=== PATIENT | male | born 1965 | race Caucasian/White ===

== ENCOUNTER 2022-03-23 09:40 | Emergency (ER) | payer BC, SELFPAY ==
--- NOTE | ~2022-03-23 | XR_ITS ---
EXAMINATION: XR CHEST CLINICAL INFORMATION: Fever COMPARISON: None TECHNIQUE: 2 views of the chest were obtained. FINDINGS: The lungs are well expanded. Airspace opacity seen at the medial right base, projecting at the right middle lobe on the lateral view. The left lung is clear. No pleural effusion or pneumothorax. The cardiomediastinal silhouette is within normal limits. XR/XR chest 2V IMPRESSION: Right middle lobe airspace opacity is suspicious for pneumonia. Follow-up to resolution.
[2022-03-23 09:44] VITALS: BP 134/73; PULSE 101; RESP 19; TEMP 37.3; O2SAT 98; BMI 25.9
--- NOTE | 2022-03-23 10:07 | ED.FEVER ---
HPI - Fever General Chief Complaint: Fever Stated Complaint: hot flashes, numbness in side, headache Time Seen by Provider: 03/23/22 10:05 Source: patient Mode of arrival: ambulatory Limitations: no limitations History of Present Illness HPI Narrative: 56-year-old male with no significant medical history presents to the ER for evaluation of 2-3 days of ?not feeling well and being sick. ? He states 2 days ago he started having subjective fevers, chills, headaches. He went to a urgent care clinic where he had a negative COVID swab. He reports also having a urine test done that shows some blood in his urine, which she has had his whole life. It did not show infection. He reports the last 2 days his symptoms have gotten worse. He has some intermittent nasal congestion and sinus pressure. He has a frontal headache. He reports at night he is getting sweating subjective fevers but has not taken his temperature. He reports a numbness when he urinates but no pain, frequency or urgency. No visible blood in his urine. He denies any nausea, vomiting, diarrhea, abdominal pain, shortness of breath, cough, chest pain. He reports decreased p.o. intake. MD elicited complaint: fever, malaise and other (headaches) Onset (ago): day(s) (3) Exacerbating factors: at night Relieving factors: nothing Associated symptoms: chills, myalgias, nasal congestion, night sweats and sinus pain Treatments prior to arrival fever: none Related Data Previous Rx's Medication Instructions Recorded azithromycin 250 mg tablet See Rx Instructions PO .COMPLEX #6 03/23/22 (Zithromax Z-Adi) tabs cefpodoxime 200 mg tablet 200 mg PO BID #14 tabs 03/23/22 prednisone 20 mg tablet 40 mg PO DAILY #10 tabs 03/23/22 Allergies Allergy/AdvReac Type Severity Reaction Status Date / Time No Known Allergies Allergy Verified 03/23/22 10:04 Review of Systems Review of Systems: Constitutional: + Fever, + Chills ENT/Mouth: No sore throat, No Rhinorrhea, No Swallowing Difficulty, +Nasal congestion, +Sinus pain Eyes: No Eye Pain, No Swelling, No Redness Cardiovascular: No Chest Pain, No SOB, No Orthopnea, No Edema Respiratory: No Cough, No Sputum, No Wheezing, No dyspnea Gastrointestinal: No Nausea, No Vomiting, No Diarrhea, No abdominal Pain, No Hematochezia, No Melena Genitourinary: No Dysuria, No Urinary Frequency, No Hematuria Musculoskeletal: + joint pain, + Myalgias Skin: No Skin Lesions, No rash Neuro: + Weakness, No Numbness, No Dizziness, + Headache Psych: No Anxiety/Panic, No Depression Heme/Lymph: No Bruising, No Lymphadenopathy Endocrine: No Polyuria, No Polydipsia PMFSH Social History Social History Advance Directives: No Advance Directives Information Provided: No Physical Exam Vital Signs: Vital Signs: Last Vital Signs Temp 99.1 F 03/23/22 09:44 Pulse 101 H 03/23/22 09:44 Resp 19 03/23/22 09:44 BP 134/73 03/23/22 09:44 Pulse Ox 98 03/23/22 09:44 O2 Del Method 03/23/22 09:44 BMI result Body Mass Index 25.9 Appearance: Alert. Oriented X3. No acute distress. Eyes: Pupils equal, round and reactive to light. ENT: Pharynx normal. Normal tympanic membranes bilaterally. Clear nasal discharge. Neck: Normal inspection. Neck supple. No lymphadenopathy CVS: Normal heart rate and rhythm. Pulses normal. Respiratory: No respiratory distress. Breath sounds normal. Abdomen: Soft and nontender. +BS x4 Skin: Skin warm and dry. Normal skin color. Normal skin turgor. No rashes. Extremities: No lower extremity edema. Neuro: Oriented X 3. No motor deficit. No sensory deficit. Course Course Course Narrative: 56-year-old male presents to the ER for evaluation of 2 days of subjective fevers, chills, headaches and generally not feeling well. Recently had negative COVID test. His vital signs today reveal low-grade fever 99.1 and heart rate 101. He is in no distress in his physical exam is unremarkable. Will get chest x-ray, repeat COVID swab, urinalysis, and basic labs. Reevaluation(s) Reevaluation #1: Basic lab workup showing WBC 12.6. Mild normocytic anemia. Complete metabolic panel is unremarkable. His urinalysis is showing blood which he reports is his baseline. He states he has had a his whole life. He has no evidence of infection. Chest x-ray showing evidence of right middle lobe pneumonia. He is saturating 90% on room air. He has minimal respiratory symptoms but has more systemic symptoms of feeling of unwell. He has no underlying lung pathology. His lungs are clear. Will plan to start him on dual coverage with azithromycin and cefpodoxime. Work note provided per request. Return precautions were discussed. Stable for discharge home. MDM - Fever Lab Data Result diagrams: 03/23/22 10:26 03/23/22 10:26 Labs: Lab Results 03/23/22 03/23/22 03/23/22 Range/Units 10:26 10:26 10:26 WBC 12.6 H (4.8-10.8) X10*3/uL RBC 4.24 L (4.60-5.80) X10*6/uL Hgb 13.1 L (14.0-18.0) g/dl Hct 36.7 L (42.0-52.0) % MCV 86.6 (80.0-98.0) fL MCH 30.9 (27.0-33.0) pg MCHC 35.7 (31.0-36.0) g/dl RDW 11.9 (11.0-16.0) % Plt Count 177 (160-400) X10*3/uL MPV 9.4 (9.4-12.4) fL Immature Gran % (Auto) 0.6 H (0.0-0.4) % Neut % (Auto) 82.5 H (45-73) % Lymph % (Auto) 8.9 L (20-40) % [place] % (Auto) 7.1 (2-11) % Eos % (Auto) 0.7 (0-4) % Baso % (Auto) 0.2 (0-2) % Lymph # (Auto) 1.1 L (1.2-4.9) X10*3/uL [place] # (Auto) 0.9 (0.1-1.2) X10*3/uL Eos # (Auto) 0.1 (0.0-0.4) X10*3/uL Baso # (Auto) 0.0 (0.0-0.2) X10*3/uL Abs Immat Gran (auto) 0.08 H (0.00-0.03) X10*3/uL Absolute Neuts (auto) 10.4 H (2.0-8.3) x10*3/uL Absolute Nucleated RBC 0.000 (0.0-0.012) X10*3/uL Nucleated RBC % (auto) 0.0 (0.0-0.2) /100WBC Sodium 137 (135-145) mmol/L Potassium 3.9 (3.3-5.1) mmol/L Chloride 99 (96-108) mmol/L Carbon Dioxide 26 (22-29) mmol/L Anion Gap 16 (12-20) BUN 13 (9-16) mg/dL Creatinine 1.24 (0.5-1.4) mg/dL Estim Creat Clear Calc 68.1 Estimated GFR > 60 Random Glucose 115 (60-115) mg/dL Calcium 9.0 (8.4-10.2) mg/dL Magnesium 2.0 (1.6-2.6) mg/dL Total Bilirubin 0.8 (0.0-1.0) mg/dL Direct Bilirubin 0.3 (0.0-0.5) mg/dL AST 15 (5-37) U/L ALT 22 (0-40) U/L Alkaline Phosphatase 72 (39-117) U/L Total Protein 7.6 (6.5-8.0) g/dL Albumin 4.4 (3.5-5.0) g/dL Urine Color Urine Appearance Urine pH (5.0-9.0) Ur Specific [place] (1.005-1.025) Urine Protein (Neg-Trace) mg/dL Urine Glucose (UA) (Negative) mg/dL Urine Ketones (Negative) mg/dL Urine Blood (Negative) Urine Nitrite (Negative) Ur Leukocyte Esterase (Negative) Urine RBC (0-2) /HPF Urine WBC (0-5) /HPF Ur Squamous Epith Cells (0-2) /HPF Urine Bacteria (None Seen) Hyaline Casts (0-2) /LPF COVID-19 (JEANINE) Negative (Negative) COVID-19 Clin Com See Note 03/23/22 Range/Units 10:26 WBC (4.8-10.8) X10*3/uL RBC (4.60-5.80) X10*6/uL Hgb (14.0-18.0) g/dl Hct (42.0-52.0) % MCV (80.0-98.0) fL MCH (27.0-33.0) pg MCHC (31.0-36.0) g/dl RDW (11.0-16.0) % Plt Count (160-400) X10*3/uL MPV (9.4-12.4) fL Immature Gran % (Auto) (0.0-0.4) % Neut % (Auto) (45-73) % Lymph % (Auto) (20-40) % [place] % (Auto) (2-11) % Eos % (Auto) (0-4) % Baso % (Auto) (0-2) % Lymph # (Auto) (1.2-4.9) X10*3/uL [place] # (Auto) (0.1-1.2) X10*3/uL Eos # (Auto) (0.0-0.4) X10*3/uL Baso # (Auto) (0.0-0.2) X10*3/uL Abs Immat Gran (auto) (0.00-0.03) X10*3/uL Absolute Neuts (auto) (2.0-8.3) x10*3/uL Absolute Nucleated RBC (0.0-0.012) X10*3/uL Nucleated RBC % (auto) (0.0-0.2) /100WBC Sodium (135-145) mmol/L Potassium (3.3-5.1) mmol/L Chloride (96-108) mmol/L Carbon Dioxide (22-29) mmol/L Anion Gap (12-20) BUN (9-16) mg/dL Creatinine (0.5-1.4) mg/dL Estim Creat Clear Calc Estimated GFR Random Glucose (60-115) mg/dL Calcium (8.4-10.2) mg/dL Magnesium (1.6-2.6) mg/dL Total Bilirubin (0.0-1.0) mg/dL Direct Bilirubin (0.0-0.5) mg/dL AST (5-37) U/L ALT (0-40) U/L Alkaline Phosphatase (39-117) U/L Total Protein (6.5-8.0) g/dL Albumin (3.5-5.0) g/dL Urine Color Yellow Urine Appearance Hazy Urine pH 5.5 (5.0-9.0) Ur Specific [place] 1.025 (1.005-1.025) Urine Protein 100 (2+) H (Neg-Trace) mg/dL Urine Glucose (UA) Negative (Negative) mg/dL Urine Ketones 15 (Negative) mg/dL Urine Blood Large (3+) H (Negative) Urine Nitrite Negative (Negative) Ur Leukocyte Esterase Negative (Negative) Urine RBC >20 H (0-2) /HPF Urine WBC 0-5 (0-5) /HPF Ur Squamous Epith Cells 0-2 (0-2) /HPF Urine Bacteria None Seen (None Seen) Hyaline Casts 0-2 (0-2) /LPF COVID-19 (JEANINE) (Negative) COVID-19 Clin Com Discharge Plan Discharge Clinical Impression: Right middle lobe pneumonia, Microscopic hematuria Patient Disposition: Home, Self-Care Instructions: Community Acquired Pneumonia (ED) Additional Instructions: Your chest x-ray today showed evidence of a right middle lobe pneumonia. Take the prescribed antibiotics and steroids as directed, complete the entire course. Rest and drink plenty of fluids. Take [id number] cold and flu medications as needed for your symptoms. Follow-up with her primary care doctor. You will need a repeat chest x-ray in the future to ensure resolution. Your urine test did show protein and blood in the urine. Recommend following up with a urologist for further evaluation. If you develop new or worsening symptoms call 911 or come back to the ER for further evaluation. Prescriptions: New azithromycin [Zithromax Z-Adi] 250 mg tablet See Rx Instructions .ROUTE .COMPLEX Qty: 6 0RF Rx Instructions: take 500 mg today (day 1), then 250 mg for 4 days (days 2-5) prednisone 20 mg tablet 40 mg PO DAILY Qty: 10 0RF cefpodoxime 200 mg tablet 200 mg PO BID Qty: 14 0RF Rx Instructions: must administer with a meal/food Referrals: Dieter Austin MD [Physician] - (Proteinuria and hematuria) Stand Alone Forms: Work/School Release
[2022-03-23] MEDS: 0.9 % Sodium Chloride 1,000 ML 999 ML IVCONT (10:27)
[2022-03-23 10:32] LABS: MANUAL DIFF FLAG NO
[2022-03-23 10:37] LABS: Color Urine Yellow; Glucose Urine UA Negative (Negative); Leukocyte Esterase Urine Negative (Negative); Nitrite Urine Negative (Negative); PH 5.5 (5.0-9.0); Specific Gravity - Urine 1.025 (1.005-1.025); Urine Blood Large (3+) (Negative); Urine Ketones 15 mg/dL (Negative); Urine Protein 100 (2+) mg/dL (Neg-Trace)
[2022-03-23 10:38] LABS: Appearance Urine Hazy
[2022-03-23 10:40] LABS: Bacteria Urine None Seen (None Seen); Hyaline Casts Urine 0-2 /LPF (0-2); RBC Urine >20 /HPF (0-2); Squamous Epithelial Cell Urine 0-2 /HPF (0-2); WBC Urine 0-5 /HPF (0-5)
[2022-03-23 10:43] LABS: Basophils Percent Auto 0.2 % (0-2); Eosinophils Absolute Auto 0.1 X10*3/uL (0.0-0.4); Eosinophils Percent Auto 0.7 % (0-4); Hematocrit 36.7 % (42.0-52.0); Hemoglobin 13.1 g/dl (14.0-18.0); Imm Gran Abs Auto 0.08 X10*3/uL (0.00-0.03); Imm Gran Pct Auto 0.6 % (0.0-0.4); Lymphocytes Absolute Auto 1.1 X10*3/uL (1.2-4.9); Lymphocytes Percent Auto 8.9 % (20-40); Mean Corpuscular HGB Conc 35.7 g/dl (31.0-36.0); Mean Corpuscular Hemoglobin 30.9 pg (27.0-33.0); Mean Corpuscular Volume 86.6 fL (80.0-98.0); Mean Platelet Volume 9.4 fL (9.4-12.4); Monocytes Absolute Auto 0.9 X10*3/uL (0.1-1.2); Monocytes Percent Auto 7.1 % (2-11); Neutrophils Absolute Auto 10.4 x10*3/uL (2.0-8.3); Neutrophils Percent Auto 82.5 % (45-73); Platelet Count 177 X10*3/uL (160-400); Red Blood Count 4.24 X10*6/uL (4.60-5.80); Red Cell Distribution Width 11.9 % (11.0-16.0); White Blood Count 12.6 X10*3/uL (4.8-10.8)
[2022-03-23 10:51] LABS: COVID-19 Test Negative (Negative)
[2022-03-23 10:53] LABS: Alanine Aminotransferase 22 U/L (0-40); Albumin Level 4.4 g/dL (3.5-5.0); Alkaline Phosphatase 72 U/L (39-117); Anion Gap 16 (12-20); Aspartate Amino Transferase 15 U/L (5-37); Bilirubin Direct 0.3 mg/dL (0.0-0.5); Bilirubin Total 0.8 mg/dL (0.0-1.0); Blood Urea Nitrogen 13 mg/dL (9-16); Carbon Dioxide 26 mmol/L (22-29); Chloride 99 mmol/L (96-108); Creatinine Clr Calc Pharmacy 68.1; Estimated Glomerular Filt Rate > 60; Glucose Random 115 mg/dL (60-115); Potassium 3.9 mmol/L (3.3-5.1); Sodium 137 mmol/L (135-145); Total Protein 7.6 g/dL (6.5-8.0)
== END 2022-03-23 12:09 | disposition home or self-care (01) ==
PROVIDERS: Physician Assistant; Emergency Provider Student in an Organized Health Care Education/Training Program
DX: J16.8 Pneumonia due to other specified infectious organisms (principal); R31.29 Other microscopic hematuria; Z20.822 Contact with and (suspected) exposure to COVID-19; R50.9 Fever, unspecified
CPT/HCPCS: 71046; 80048; 80076; 81001; 83735; 85025; 87635; 96360; 99283; 99284

== ENCOUNTER 2023-06-16 19:12 | Emergency (ER) | payer BC, SELFPAY ==
[2023-06-16 19:17] VITALS: BP 130/80; PULSE 76; RESP 20; TEMP 36.8; O2SAT 98; BMI 26.3
[2023-06-16 20:50] VITALS: BP 115/75; PULSE 66; RESP 19; TEMP 36.6; O2SAT 98
--- NOTE | 2023-06-16 21:53 | ED_ITS ---
HPI - Back Pain/Injury General Chief Complaint: Back Pain/Injury Stated Complaint: lower back and side pain Time Seen by Provider: 06/16/23 21:40 Source: patient Mode of arrival: ambulatory Limitations: no limitations History of Present Illness HPI Narrative: 57-year-old male who presents emergency department for evaluation of right lower back pain with pain radiating to his right hip. Patient states the pain started this morning and has gotten progressively worse. He states he had similar pain 1 year prior and was treated with muscle relaxants and physical therapy with improvement of his pain. The patient does not recount any injury. He denied systemic symptoms such as fever, chills, fatigue, nausea, vomiting. Denied loss of bowel or bladder control. He states that his pain is a constant, sharp pain which is 10/10 and worse with movement. Related Data Previous Rx's Medication Instructions Recorded azithromycin 250 mg tablet See Rx Instructions PO .COMPLEX #6 03/23/22 (Zithromax Z-Adi) tabs cefpodoxime 200 mg tablet 200 mg PO BID #14 tabs 03/23/22 prednisone 20 mg tablet 40 mg (2 x 20 mg) PO DAILY #10 tabs 03/23/22 methocarbamol 1,000 mg tablet 1,000 mg PO TID PRN Pain and 06/16/23 muscle spasm #20 tabs Allergies Allergy/AdvReac Type Severity Reaction Status Date / Time No Known Allergies Allergy Verified 06/16/23 19:20 Review of Systems Review of Systems: Yes all other systems are reviewed and are negative [facility] Past Medical History [facility] Narrative: Past medical history: ?Pinched nerve in neck ?. Social history: Patient denies tobacco, alcohol and drug use. Social History Alcohol intake: never Smoked in Last 30 Days: No Use of substances other than those prescribed or required for medical reasons: No Advance Directives: No Advance Directives Information Provided: No Physical Exam Vital Signs: Vital Signs: Last Vital Signs Temp 97.9 F 06/16/23 20:50 Pulse 66 06/16/23 20:50 Resp 19 06/16/23 20:50 BP 115/75 06/16/23 20:50 Pulse Ox 98 06/16/23 20:50 O2 Del Method Room Air 06/16/23 20:50 BMI result Body Mass Index 26.3 Vital signs were normal Exam: General: Awake, alert in no distress Head: Normocephalic, atraumatic EENT: PERRL, Lids normal, sclera normal, conjunctiva normal, nose normal , ears normal, throat without erythema or exudates Neck: Supple, no adenopathy, no trachea midline or C-spine tenderness Lung: breath sounds symmetric, no wheezing, rales or rhonchi Chest: symmetric movement, nontender Heart: regular rate and rhythm, normal S1, S2 no murmurs or rubs Abdomen: soft, non-tender, nondistended, normal bowel sounds Back: no vertebral tenderness, patient does have tenderness palpation of the paraspinal muscles in lumbar sacral area on the right, there is spasm of these muscles, has negative straight leg raises bilaterally Extremities: no deformities, moves all extremities symmetrically Skin: no rashes, no lesion, normal color , no increased warmth noted over the patient's back in the area where he 7 the pain Neuro: Awake, alert, oriented, normal speech, cranial nerves intact, moves all extremities symmetrically Psych: Pleasant, cooperative Medical Decision Making Medical Decision Making MDM Narrative: 57-year-old male with no significant past medical history presents emergency department for evaluation of right lower back pain with pain radiating to his right hip that started this morning is got progressively worse. States he had similar pain in the past and was treated with muscle relaxants. He had no systemic symptoms. Vital signs were normal. Exam did reveal tenderness palpation of his paraspinal muscles in the right lumbar sacral area with negative straight leg raises bilaterally. Patient's presentation is consistent with lumbar strain radiculopathy. Patient was advised to take ibuprofen and Tylenol for pain. He was prescribed Robaxin 750 mg 3 times a day as needed for pain and spasm. He was given printed and verbal instructions discharged home Differential Diagnosis Differential Diagnoses: The differential diagnosis associated with the presentation includes Differential diagnosis includes was not limited to musculoskeletal strain, cervical disc disease, sciatica, radiculopathy Prescription Management I considered prescription management with: Other (Antispasm medications, Robaxin) Discharge Plan Discharge Clinical Impression: Lumbar radiculopathy Patient Disposition: Home, Self-Care Instructions: Lumbar Radiculopathy (ED) Additional Instructions: Your exam is consistent with lower back muscle strain with inflammation of your nerves causing pain to go down to your hip. This is called lumbar radiculopathy. Take ibuprofen 200 mg pills, 2 pills every 6 hours as needed for pain or fever. Take Tylenol (acetaminophen) 500 mg pills, 2 pills every 6 hours as needed for pain or fever. Take Robaxin (methocarbamol) 750 mg pills, 1 pill every every 6 hours (3 times a day) as needed for pain or spasm. This medication will make you sleepy. Do not drive or work while taking this medication. Apply ice for 10-15 minutes 4 times a day to your right lower back to help reduce the pain and swelling, do this for the next 3-4 days. Follow-up with your doctor in 2 days. Please return to the emergency department if your symptoms get worse or if you develop any symptoms that are concerning to you. Prescriptions: New methocarbamol 1,000 mg tablet 1,000 mg PO TID PRN (Reason: Pain and muscle spasm) Qty: 20 0RF No Action azithromycin [Zithromax Z-Adi] 250 mg tablet See Rx Instructions .ROUTE .COMPLEX Qty: 6 0RF Rx Instructions: take 500 mg today (day 1), then 250 mg for 4 days (days 2-5) prednisone 20 mg tablet 40 mg PO DAILY Qty: 10 0RF cefpodoxime 200 mg tablet 200 mg PO BID Qty: 14 0RF Rx Instructions: must administer with a meal/food
== END 2023-06-16 22:22 | disposition home or self-care (01) ==
PROVIDERS: Emergency Provider Emergency Medicine Emergency Medical Services; PCP Psychologist
DX: M54.16 Radiculopathy, lumbar region (principal); M54.50 Low back pain, unspecified
CPT/HCPCS: 99283; 99284